=== PATIENT | male | born 1975 ===

== ENCOUNTER 2021-03-02 06:53 | Emergency (ER) | payer OTHER ==
[~2021-03-02] VITALS: Ht 188 cm; Wt 121.0 kg
[2021-03-02 06:55] VITALS: BP 144/92
--- NOTE | 2021-03-02 07:57 | NUR ---
NA X 1
--- NOTE | 2021-03-02 08:02 | NUR ---
CRUZ RN: CALLED FROM [facility], NO ANSWER
--- NOTE | 2021-03-02 08:09 | NUR ---
CRUZ RN: CALLED FROM [facility], NO ANSWER
== END 2021-03-02 08:10 | disposition left against medical advice (07) ==
LOC: ED 08:03
DX: M79.661 Pain in right lower leg (principal); Z53.21 Procedure and treatment not carried out due to patient leaving prior to being seen by health care provider